=== PATIENT | female | born 1970 | race Caucasian/White ===

== ENCOUNTER → 2016-07-02 | Outpatient (CLI) | payer BC ==
[~2016-07-02] MED LIST: CIPRO250 MG PO; HYDROCODONE BIT1 T11 PO; MOTRIN800 MG PO; PERCOCET 325 MG1 TA2 PO; PREDNICOT20 MG PO; PREVACID SOLUTA30 MG PO; ZOFRAN ODT4 MG SL
== END | disposition home or self-care (01) ==
LOC: MRI 02:02
DX: S83.241A Other tear of medial meniscus, current injury, right knee, initial encounter (principal); S83.91XA Sprain of unspecified site of right knee, initial encounter; M22.41 Chondromalacia patellae, right knee; M25.461 Effusion, right knee; M71.21 Synovial cyst of popliteal space [Baker], right knee; X58.XXXA Exposure to other specified factors, initial encounter; Y93.89 Activity, other specified; Y92.89 Other specified places as the place of occurrence of the external cause; Y99.8 Other external cause status

== ENCOUNTER → 2016-07-21 | Day surgery (SDC) | payer BC ==
[2016-07-16 08:14] VITALS: BP 120/72
[2016-07-17 08:49] LABS: BILIRUBIN NEGATIVE (NEGATIVE); BLOOD NEGATIVE (NEGATIVE); CLARITY SL CLOUDY (CLEAR); COLOR YELLOW (YELLOW); GLUCOSE NEGATIVE (NEGATIVE); KETONE NEGATIVE (NEGATIVE); LEUKO ESTERASE NEGATIVE (NEGATIVE); NITRITE NEGATIVE (NEGATIVE); PH 5.5 (5.0-9.0); PROTEIN NEGATIVE (NEGATIVE); UROBILINOGEN 0.2 E.U./dl (0.2-1.0)
[2016-07-17 08:52] LABS: BASO # 0.1 10*3/uL (0.0-0.1); BASO % 0.9 % (0.0-1.0); EOS # 0.1 10*3/uL (0.0-0.4); EOS % 1.7 % (1.0-4.0); HEMATOCRIT 43.1 % (37.0-47.0); HEMOGLOBIN 14.4 g/dl (12.0-16.0); LYMPH # 2.7 10*3/uL (1.3-4.4); LYMPH % 39.7 % (27.0-41.0); MEAN CELL VOLUME 91.5 fl (81.0-99.0); MEAN CORPUSCULAR HGB 30.6 pg (27.0-31.0); MEAN CORPUSCULAR HGB CONC 33.4 g/dl (33.0-37.0); MEAN PLATELET VOLUME 9.9 fl (9.6-12.3); MONO # 0.5 10*3/uL (0.1-1.0); MONO % 7.7 % (3.0-9.0); NEUT # 3.4 10*3/uL (2.3-7.9); NEUT % 49.7 % (47.0-73.0); PLATELET COUNT AUTOMATED 337 10*3/uL (130-400); RED BLOOD COUNT 4.71 10*6/uL (4.10-5.10); RED CELL DISTRI WIDTH 12.6 % (0-14.5); WHITE BLOOD COUNT 6.9 10*3/uL (4.8-10.8)
[2016-07-17 09:03] LABS: BACTERIA TRACE; MUCOUS 1+; RBC 0-2 rbc/hpf (0-2); WBC 0-2 wbc/hpf (0-5)
[2016-07-17 09:23] LABS: BUN 21 mg/dl (7-24); CARBON DIOXIDE 27 mmol/L (21-32); CHLORIDE 107 mmol/L (98-107); EST GLOM FILT AFRICAN AMERICAN > 60 ml/min; GLUCOSE 100 mg/dL (65-99); POTASSIUM 3.7 mmol/L (3.5-5.1); SODIUM 140 mmol/L (136-145)
[~2016-07-21] VITALS: Ht 177.8 cm; Wt 87.5 kg
[~2016-07-21] MED LIST changes: +PERCOCET 325 MG1 TA6 PO; +TRAMADOL HCL50 MG PO; +ZOFRAN4 MG PO
--- NOTE | ~2016-07-21 | O ---
[place], [place] OPERATIVE NOTE NAME: BETTE NOVA [facility] #: [id number] UNIT #: [id number] ROOM: DOCTOR: NATI OSORIO DO BIRTHDATE: [birth year] DOS: 07/21/2016 PREOPERATIVE DIAGNOSES: Right knee medial meniscus tear and chondromalacia. POSTOPERATIVE DIAGNOSES: Right knee medial and lateral meniscus tears and medial and lateral chondromalacia. SURGERY: Right knee arthroscopy with debridement of the medial and lateral meniscus tears and medial and lateral chondroplasty. SURGEON: Nati Osorio DO. RESEARCH ADMINISTRATOR: Brandon. ANESTHESIA: RHETT Pike. INDICATIONS: The patient is a 46-year-old female with a history of injury to the right knee, unrelieved with conservative care. The risks and benefits of the procedure were explained to the patient preoperatively. Preoperative labs and x-rays were obtained including a preoperative MRI. DESCRIPTION OF PROCEDURE: The right knee was marked in the holding room. The patient was brought to the operative suite. The patient was placed supine on the operative table. A time-out was performed. General anesthetic with LMA intubation was performed. The right lower extremity was placed in a leg lam. The right lower extremity was prepped and draped in the usual orthopedic manner. The lateral portal was created using a #11 blade followed by blunt trocar and cannula. The trocar was removed and the cannula remained and the inflow and the outflow were established through the cannula. A spinal needle was used to winsome the medial portal. A #11 blade was used to create the medial portal, followed by a blunt trocar. The knee was evaluated in a systematic fashion. The medial compartment was noted to have a posterior medial meniscus tear as well as grade 2-3 chondromalacia about the medial femoral condyle. This was debrided using a full-radius resector, a handheld alysha ball rasp, a straight box biter and a handheld Arthrex wand. The full-radius resector was then used to remove any of the cartilaginous debris. The medial femoral condyle was noted to have a smoother transition between the healthy cartilage and the damaged cartilage. The notch was identified and evaluated. The anterior cruciate ligament was intact to probing and an anterior drawer test. The lateral compartment was identified and evaluated. There was noted to be a less than 1 cm area of chondromalacia and this was gently smoothed using the full-radius resector and a handheld alysha ball rasp. There was a small posterior lateral meniscus tear and this was debrided using the Arthrex wand. Patellofemoral joint was identified and evaluated. There was noted to be minor articular damage with synovitis about the patellofemoral joint. This was gently debrided using the full-radius resector and the Arthrex wand. [place], [place] OPERATIVE NOTE NAME: BETTE NOVA UNIT #: [id number] ROOM: DOCTOR: NATI OSORIO DO BIRTHDATE: [birth year] The instrumentation was switched using the arthroscopy camera medially and instrumentation laterally. All compartments were again identified and evaluated. Further debridement was performed, particularly about the medial compartment. When no repairable or debridable pathology was present, the knee was copiously irrigated with remainder of lactated Ringer's with epinephrine. The knee was expressed of any excess fluid. The portals were closed with 4-0 Prolene. Xeroform, 4 x 4s, cast padding, ABDs, and an Neeraj bandage were used to complete the dressing. The anesthetic was reversed. The patient was taken to the recovery room in satisfactory condition. COUNTS: Sponge and needle count correct. ESTIMATED BLOOD LOSS: 10 mL. SPECIMENS: None. DRAINS: None. PACKING: None. COMPLICATIONS: None. FINDINGS: 1. Medial and lateral meniscus tears. 2. Chondromalacia of the medial and lateral femoral condyles; medial grade 2-3 and lateral grade 1. NATI SOORIO DO CM:OPRECORD:OPERATIVE NOTE [id number] NATI OSORIO DO 07/21/16 1428 interface
[2016-07-21 09:30] VITALS: BP 134/86
[2016-07-21 13:19] VITALS: BP 158/86
[2016-07-21 13:35] VITALS: BP 133/80
[2016-07-21 14:05] VITALS: BP 139/53
[2016-07-21 14:20] VITALS: BP 125/68
[2016-07-21 14:44] VITALS: BP 120/62
== END | disposition home or self-care (01) ==
LOC: SDC 07-16 08:00
PROVIDERS: Orthopaedic Surgery
DX: S83.241A Other tear of medial meniscus, current injury, right knee, initial encounter (principal); S83.281A Other tear of lateral meniscus, current injury, right knee, initial encounter; M94.261 Chondromalacia, right knee; X58.XXXA Exposure to other specified factors, initial encounter; Y93.89 Activity, other specified; Y92.89 Other specified places as the place of occurrence of the external cause; Y99.8 Other external cause status; Z90.710 Acquired absence of both cervix and uterus; Z98.51 Tubal ligation status; F17.210 Nicotine dependence, cigarettes, uncomplicated; Z83.3 Family history of diabetes mellitus; Z82.3 Family history of stroke; Z82.49 Family history of ischemic heart disease and other diseases of the circulatory system

== ENCOUNTER → 2016-12-23 | Outpatient (CLI) | payer OTHER ==
[2016-12-23 18:40] LABS: BASO % 0.3 % (0.0-1.0); EOS # 0.1 10*3/uL (0.0-0.4); EOS % 0.4 % (1.0-4.0); HEMATOCRIT 41.9 % (37.0-47.0); HEMOGLOBIN 13.9 g/dl (12.0-16.0); LYMPH # 4.9 10*3/uL (1.3-4.4); LYMPH % 43.7 % (27.0-41.0); MEAN CELL VOLUME 93.1 fl (81.0-99.0); MEAN CORPUSCULAR HGB 30.9 pg (27.0-31.0); MEAN CORPUSCULAR HGB CONC 33.2 g/dl (33.0-37.0); MEAN PLATELET VOLUME 10.6 fl (9.6-12.3); MONO # 0.5 10*3/uL (0.1-1.0); MONO % 4.7 % (3.0-9.0); NEUT # 5.6 10*3/uL (2.3-7.9); NEUT % 50.6 % (47.0-73.0); PLATELET COUNT AUTOMATED 339 10*3/uL (130-400); RED CELL DISTRI WIDTH 13.3 % (0-14.5); WHITE BLOOD COUNT 11.2 10*3/uL (4.8-10.8)
[2016-12-23 18:55] LABS: ALKALINE PHOSPHATASE 112 U/L (45-117); BUN 13 mg/dl (7-24); CHLORIDE 108 mmol/L (98-107); CHOLESTEROL 202 mg/dL (<200); CREATININE 1.18 mg/dL (0.55-1.02); HDL CHOLESTEROL 53 mg/dl (40-60); LDL CHOLESTEROL 108 mg/dL (9-159); POTASSIUM 3.2 mmol/L (3.5-5.1); SGOT/AST 21 IU/L (3-35); SGPT/ALT 37 U/L (12-78); SODIUM 144 mmol/L (136-145); TOTAL PROTEIN 7.4 gm/dL (6.4-8.2); TRIGLYCERIDES 204 mg/dl (<150); VLDL CHOLESTEROL 41 mg/dL (6-40)
== END | disposition home or self-care (01) ==
LOC: LAB 16:26
PROVIDERS: Nurse Practitioner Adult Health
DX: Z01.818 Encounter for other preprocedural examination (principal); N18.2 Chronic kidney disease, stage 2 (mild); R73.01 Impaired fasting glucose; R79.89 Other specified abnormal findings of blood chemistry

== ENCOUNTER → 2016-12-29 | Outpatient (CLI) | payer OTHER | END | disposition home or self-care (01) | LOC: LAB 06:31 | DX: Z01.818 Encounter for other preprocedural examination (principal); N18.2 Chronic kidney disease, stage 2 (mild); N73.0 Acute parametritis and pelvic cellulitis ==